=== PATIENT | female | born 1950 | race Hispanic/Latino ===

== ENCOUNTER → 2018-08-13 | Outpatient (CLI) | payer OTHER ==
[~2018-08-13] MED LIST: BIMA2.5D4 OU; CARB15DR OU; LEVO75TA10 PO; LISI1TAB9 PO
== END | disposition home or self-care (01) ==
LOC: SHCH 08:50
PROVIDERS: ATTEND Internal Medicine Cardiovascular Disease
DX: I87.2 Venous insufficiency (chronic) (peripheral) (principal)
CPT/HCPCS: 93970

== ENCOUNTER → 2021-01-20 | Outpatient (CLI) | payer MEDICARE ==
[~2021-01-20] MED LIST changes: +LISI1TAB32 PO; -LISI1TAB9 PO
== END | disposition home or self-care (01) ==
LOC: SHCH 12:38
PROVIDERS: ATTEND Internal Medicine Cardiovascular Disease
DX: I49.3 Ventricular premature depolarization (principal)
CPT/HCPCS: 93306

== ENCOUNTER → 2023-10-29 | Outpatient (CLI) | payer MEDICARE ==
[~2023-10-29] MED LIST changes: +DOCU-116 PO; +GABA-529 PO; +LATA2.5D14 OU; -LISI1TAB32 PO; +LISI1TAB49 PO; +METH-662 PO; +METO-408 PO; +PANT20TA18 PO; +TRAM50TA4 PO
== END | disposition home or self-care (01) ==
LOC: SHCH 13:24
PROVIDERS: ATTEND Internal Medicine Cardiovascular Disease
DX: Z01.810 Encounter for preprocedural cardiovascular examination (principal); I35.8 Other nonrheumatic aortic valve disorders; I49.3 Ventricular premature depolarization; I10 Essential (primary) hypertension
CPT/HCPCS: 93306

== ENCOUNTER → 2023-11-10 | Outpatient (CLI) | payer MEDICARE ==
[2023-11-10 22:59] VITALS: PULSE 56; RESP 20
[2023-11-10 23:34] VITALS: PULSE 47; RESP 16
[2023-11-11] VITALS (11 sets, daily range): PULSE 53–66; RESP 14–20
== END | disposition home or self-care (01) ==
LOC: SLP 20:31
PROVIDERS: ATTEND Internal Medicine Cardiovascular Disease
DX: G47.33 Obstructive sleep apnea (adult) (pediatric) (principal); I10 Essential (primary) hypertension; I25.10 Atherosclerotic heart disease of native coronary artery without angina pectoris
CPT/HCPCS: 95810

== ENCOUNTER 2023-11-18 06:40 | Day surgery (SDC) | payer MEDICARE ==
[2023-11-13 12:29] VITALS: BP 140/60; PULSE 59; RESP 17
[2023-11-13 12:30] LABS: BASOPHILS # (AUTO) 0.03 K/uL (0.00-0.20); BASOPHILS % (AUTO) 0.6 % (0.0-5.0); EOSINOPHILS # (AUTO) 0.19 K/uL (0.00-0.70); EOSINOPHILS % (AUTO) 3.9 % (0.0-8.0); HEMATOCRIT 39.8 % (36-48); LYMPHOCYTES % (AUTO) 60.4 % (21.0-51.0); MEAN CORPUSCULAR HEMOGLOBIN 30.6 pg (27.0-33.0); MEAN CORPUSCULAR HGB CONC 33.2 g/dL (32.0-36.0); MEAN CORPUSCULAR VOLUME 92.3 fL (79-99); MONOCYTES # (AUTO) 0.6 K/uL (0.1-1.0); MONOCYTES % (AUTO) 11.2 % (3.0-13.0); NEUTROPHILS # (AUTO) 1.2 K/uL (1.8-7.7); NEUTROPHILS % (AUTO) 23.9 % (40.0-77.0); PLATELET COUNT (AUTO) 133 K/uL (130-400); RED BLOOD CELL COUNT(AUTO) 4.31 MIL/uL (4.00-5.50); RED CELL DISTRIBUTION WIDTH 12.8 % (11.0-15.5); WHITE BLOOD COUNT (AUTO) 4.9 K/uL (4.8-10.8)
[2023-11-13 12:41] LABS: INR 0.96 (0.85-1.15); PROTHROMBIN TIME 11.4 SEC (9.6-11.6)
[2023-11-13 12:42] LABS: PARTIAL THROMBOPLASTIN TIME 31.7 SEC (26.3-35.5)
[2023-11-13 12:45] LABS: CREATININE 0.8 mg/dL (0.5-1.0); POTASSIUM 4.1 mmol/L (3.5-5.1)
[2023-11-13 13:05] LABS: EOSINOPHILS % (MANUAL) 3 % (1-6); LYMPHOCYTES % (MANUAL) 52 % (22-44); MONOCYTES % (MANUAL) 8 % (2-9); REACTIVE LYMPHOCYTES 22 % (0-0); SEGMENTED NEUTROPHILS % 15 % (40-70); TOTAL CELLS COUNTED 100
[2023-11-13 13:06] LABS: MAN.DIFF COMMENT-IMPRESSION MANUAL DIFFERENTIAL; PLATELET MORPHOLOGY COMMENT ADEQUATE
[~2023-11-18] VITALS: Ht 160 cm; Wt 81.3 kg
[2023-11-18] VITALS (13 sets, daily range): BP systolic 112–157; BP diastolic 50–87; PULSE 47–75; RESP 14–18
[~2023-11-18 06:40] MED LIST changes: -BIMA2.5D4 OU; -CARB15DR OU; -DOCU-116 PO; -GABA-529 PO; -LISI1TAB49 PO; -METH-662 PO; -TRAM50TA4 PO
[2023-11-18] MEDS ORDERED: EPINEPHRINE PF 1MG (1:1,000) 1 MG/ML AMP ONE (07:00)
[2023-11-18] MEDS ORDERED: BUPIVACAINE/PF 0.5% 30ML VIAL ONE (07:00)
[2023-11-18] MEDS ORDERED: ACETAMINOPHEN 1,000 MG/100 ML VIAL IV ONE (07:05)
[2023-11-18] MEDS ORDERED: FAMOTIDINE 20MG VIAL IV ONE (07:05)
[2023-11-18] MEDS ORDERED: LIDOCAINE PF 100MG/5ML (2%) SYRINGE 5ML ONE (07:07)
[2023-11-18] MEDS ORDERED: PROPOFOL 10 MG/ML 20ML VIAL IV ONE (07:07)
[2023-11-18] MEDS ORDERED: FENTANYL CITRATE PF 50 MCG/1 ML 2ML VIAL ONE (07:08)
[2023-11-18] MEDS ORDERED: ROCURONIUM BROMIDE 10MG/1ML 5ML VL ONE ×2 (07:08→08:07)
[2023-11-18] MEDS ORDERED: CEFAZOLIN SODIUM 2 GM VIAL ONE (07:23)
[2023-11-18] MEDS: LACTATED RINGERS 1000ML 1,000 ML IV ONE (07:35)
[2023-11-18] MEDS ORDERED: ONDANSETRON 4MG INJ ONE (07:39)
[2023-11-18] MEDS ORDERED: DEXAMETHASONE SOD PHOSPHATE 10MG/ML 1ML VIAL ONE (07:39)
[2023-11-18] MEDS ORDERED: NEOSTIGMINE METHYLSULFATE 1MG/ML IV ONE (07:57)
[2023-11-18] MEDS ORDERED: GLYCOPYRROLATE 0.2 MG/ML 5 ML VIAL ONE (07:57)
[2023-11-18] MEDS: CEFAZOLIN SODIUM 2 GM VIAL IVPB ONE (08:00)
[2023-11-18] MEDS: BUPIVACAINE/EPI/PF 0.5% 30ML VIAL IJ ONE (08:11)
[2023-11-18] MEDS: IOHEXOL-350 50ML VIAL IV ONE (08:22)
[2023-11-18] MEDS ORDERED: TRAM50TA4 PO (08:51)
[2023-11-18] MEDS ORDERED: DOCU-116 PO (08:51)
[2023-11-18] MEDS ORDERED: METH-662 PO (08:51)
[2023-11-18] MEDS ORDERED: GABA-529 PO (08:51)
[2023-11-18] MEDS: MEPERIDINE-PF 25 MG/ML SYG ONE (09:16)
[2023-11-18] MEDS ORDERED: IOHEXOL-350 50ML VIAL IV ONE (11:41)
== END 2023-11-18 10:05 | disposition home or self-care (01) ==
LOC: DAH 06:40
PROVIDERS: ATTEND Surgery
DX: K81.1 Chronic cholecystitis (principal); I10 Essential (primary) hypertension; E03.9 Hypothyroidism, unspecified; M19.90 Unspecified osteoarthritis, unspecified site; Z80.7 Family history of other malignant neoplasms of lymphoid, hematopoietic and related tissues; Z86.73 Personal history of transient ischemic attack (TIA), and cerebral infarction without residual deficits; Z82.49 Family history of ischemic heart disease and other diseases of the circulatory system; Z86.010 Personal history of colon polyps; Z79.890 Hormone replacement therapy; Z79.899 Other long term (current) drug therapy; Z90.711 Acquired absence of uterus with remaining cervical stump; Z98.890 Other specified postprocedural states
CPT/HCPCS: 80048; 85025; 85610; 85730; 36415; 93005; 47563; 88304; 48400; A6260; A4600 ×2; A4663; J7030; J7120 ×2; A4215 ×2; C1758; J3490 ×5; J3010; J1100; J2001; J0171; J2704; J2405; J2710; J0665; J2175; Q9967 ×2; J0690 ×2; A4649 ×2; A4930; A4223; A4222; A4221

== ENCOUNTER → 2023-12-10 | Outpatient (CLI) | payer MEDICARE ==
[~2023-12-10] MED LIST changes: +BIMA2.5D4 OU; +CARB15DR OU; +DOCU-116 PO; +GABA-529 PO; +LISI1TAB49 PO; +METH-662 PO; +TRAM50TA4 PO
[2023-12-10 22:39] VITALS: PULSE 66; RESP 17
[2023-12-10 23:18] VITALS: PULSE 54; RESP 15
[2023-12-10 23:21] VITALS: PULSE 54; RESP 18
[2023-12-10 23:50] VITALS: PULSE 51; RESP 26
[2023-12-11] VITALS (14 sets, daily range): PULSE 43–58; RESP 13–27
== END | disposition home or self-care (01) ==
LOC: SLP 20:49
PROVIDERS: ATTEND Internal Medicine Cardiovascular Disease
DX: G47.33 Obstructive sleep apnea (adult) (pediatric) (principal)
CPT/HCPCS: 95811

== ENCOUNTER → 2023-12-29 | Outpatient (CLI) | payer MEDICARE ==
[~2023-12-29] MED LIST changes: -BIMA2.5D4 OU; -CARB15DR OU; -LISI1TAB49 PO
== END | disposition home or self-care (01) ==
LOC: SHCH 09:58
PROVIDERS: ATTEND Internal Medicine Cardiovascular Disease
DX: I87.2 Venous insufficiency (chronic) (peripheral) (principal); I87.1 Compression of vein; Z79.899 Other long term (current) drug therapy
CPT/HCPCS: 93970